=== PATIENT | male | born 1945 | race Caucasian/White ===

== ENCOUNTER 2017-06-13 15:01 | Emergency (ER) | payer OTHER ==
[~2017-06-13] VITALS: Ht 185.4 cm; Wt 105.3 kg
[2017-06-13] MEDS ORDERED: GLIPIZIDE 10 MG10 MG PO (15:08)
[2017-06-13] MEDS ORDERED: COREG25 MG PO (15:09)
[2017-06-13] MEDS ORDERED: TESSALON PERLE100 MG PO (15:58)
[2017-06-13] MEDS ORDERED: CHERATUSSIN AC118 ML PO (15:58)
[2017-06-13] MEDS ORDERED: IBUPROFEN 800800 M1 PO (15:58)
[2017-06-13 16:05] LABS: INFLUENZA B ANTIGEN None Detected (None Detect)
[2017-06-13] MEDS ORDERED: ZPAK PO (16:17)
[2017-06-13 16:19] VITALS: BP 139/66
--- NOTE | 2017-06-14 12:33 | EKG ---
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1945 Requested By: Estefanía Randhawa Order Number: [id number] Manan MD: Ayaz Laura Measurements Intervals [place] Rate: 72 P: 0 CA: 65 QRS: -35 QRSD: 124 T: -41 QT: 490 QTc: 537 Interpretive Statements Sinus rhythm Multiple premature complexes, vent & supraven Short CA interval IVCD, consider atypical RBBB Nonspecific T abnormalities, lateral leads Baseline wander in lead(s) V1 No previous ECG available for comparison Electronically Signed On 06-14-2017 12:33:11 SHIP JOINER by Ayaz Laura [email or web address] <ELECTRONICALLY SIGNED> By: Ayaz Laura MD, FAC 06/14/17 1233 [id number] Ayaz Laura MD, [facility] /EPI
== END 2017-06-13 16:20 | disposition home or self-care (01) ==
LOC: M.ERS 15:01
PROVIDERS: Physician Assistant
DX: J09.X2 Influenza due to identified novel influenza A virus with other respiratory manifestations (principal); J20.9 Acute bronchitis, unspecified; E11.9 Type 2 diabetes mellitus without complications; I10 Essential (primary) hypertension

== ENCOUNTER 2017-10-31 06:02 | Inpatient (IN) | payer OTHER ==
[2017-10-31] VITALS (7 sets, daily range): BP systolic 115–171; BP diastolic 71–102
[~2017-10-31] VITALS: Ht 188 cm; Wt 109.8 kg
[~2017-10-31 06:02] MED LIST: CHERATUSSIN AC118 ML PO; COREG25 MG PO; GLIPIZIDE 10 MG10 MG PO; IBUPROFEN 800800 M1 PO; TESSALON PERLE100 MG PO; ZPAK PO
[2017-10-31] MEDS ORDERED: PIOGLITAZONE15 MG PO (06:17)
[2017-10-31 06:36] LABS: ABSOLUTE BASOPHILS 0.1 thou/uL (0.0-0.2); ABSOLUTE EOSINOPHILS 0.2 thou/uL (0.0-0.7); ABSOLUTE LYMPHOCYTES 1.4 thou/uL (0.8-5.3); ABSOLUTE MONOCYTES 0.5 thou/uL (0.0-1.2); ABSOLUTE NEUTROPHILS 5.8 thou/uL (1.6-8.1); BASOPHILS 0.7 %; EOSINOPHILS 2.5 %; HEMATOCRIT 37.2 % (42.0-52.0); HEMOGLOBIN 12.2 gm/dL (14.0-18.0); LYMPHOCYTES 17.1 %; MCHC 32.9 g/dL (28.0-37.0); MCV 88.1 fL (80.0-100.0); MONOCYTES 6.5 %; MPV 9.2 fl. (7.2-11.1); NUCLEATED RBCS 0 /100WBC; PLATELET COUNT* 140 thou/uL (150-400); POLYS 73.2 %; RBC 4.22 mil/uL (4.50-6.00); RDW-CV 14.3 % (10.5-14.5)
[2017-10-31 06:40] LABS: CALCIUM 9.2 mg/dL (8.5-10.1); CREATININE 1.7 mg/dL (0.6-1.3); POTASSIUM 3.9 mmol/L (3.5-5.1)
[2017-10-31 06:49] LABS: URINE BILIRUBIN NEGATIVE (Negative); URINE BLOOD 2+ (Negative); URINE CLARITY CLEAR; URINE COLOR YELLOW; URINE GLUCOSE-RANDOM NEGATIVE (Negative); URINE KETONES NEGATIVE (Negative); URINE LEUKOCYTES-REFLEX NEGATIVE (Negative); URINE NITRITE-REFLEX NEGATIVE (Negative); URINE PROTEIN 2+ (Negative); URINE UROBILINOGEN 0.2 E.U./dl (0.2-1.0)
[2017-10-31 06:51] LABS: ALBUMIN 3.7 g/dL (3.4-5.0); TOTAL BILIRUBIN 0.9 mg/dL (<0.1-1.0); TOTAL PROTEIN 7.4 g/dL (6.4-8.2)
[2017-10-31 06:58] LABS: BACTERIA-REFLEX 1-9 Few /HPF (None Seen); CRYSTALS None Seen /LPF (None Seen); HYALINE CASTS 4-10 Moderate /LPF (None Seen); MUCUS 0-3 Light strn/LPF (None Seen); SQUAMOUS 0-3 Few /LPF (0-3); URINE RBC 3-10 Few /HPF (0-2); URINE WBC-REFLEX 0-5 Rare /HPF (0-5)
--- NOTE | 2017-10-31 11:55 | NUR ---
PATIENT CAME TO THE FLOOR FROM THE ER VIA CART, IN STABLE CONDITION. COMPLAINS OF PAIN THAT IS NOT WELL CONTROLLED YET. PAIN MEDICATION GIVEN AND FLUIDS STARTED. ADMISSION ASSESSMENT AND ROOM ORIENTATION DONE, WUESTIONS ANSWERED FOR PATIENT. CALL LIGHT IS IN REACH, WILL CONTINUE TO MONITOR.
[2017-10-31] MEDS ORDERED: TRESIBA FL200 UNIT/1 SUBQ (12:04)
[2017-10-31] MEDS ORDERED: ATORVASTATIN CA40 MG PO (12:04)
[2017-10-31] MEDS ORDERED: PROSCAR 5MG TABL5 MG PO (12:04)
[2017-10-31] MEDS ORDERED: FLOMAX0.4 MG PO (12:05)
--- NOTE | 2017-10-31 17:46 | NUR ---
PATIENT HAS BEEN ALERT SINCE ARRIVING TO THE FLOOR FROM THE ER. VITAL SIGNS HAVE BEEN STABLE ON ROOM AIR. PROVIDER ORDERED WHITE TO BE REMOVED WAITING ON PATIENT TO VOID WILL NEED TO STRAIN URINE. IV FLUID IS RUNNING IN RIGHT AC. CALL LIGHT IS IN REACH, WILL CONTINUE TO MONITOR.
[2017-11-01 00:01] VITALS: BP 124/77
[2017-11-01 04:39] LABS: HEMATOCRIT 33.4 % (42.0-52.0); HEMOGLOBIN 11.1 gm/dL (14.0-18.0); MCH 29.5 pg (26.0-34.0); MCHC 33.3 g/dL (28.0-37.0); MCV 88.8 fL (80.0-100.0); MPV 9.5 fl. (7.2-11.1); RBC 3.76 mil/uL (4.50-6.00); RDW-CV 14.5 % (10.5-14.5); WBC 4.9 thou/uL (4.0-11.0)
[2017-11-01 04:51] LABS: CALCIUM 8.5 mg/dL (8.5-10.1); CREATININE 2.1 mg/dL (0.6-1.3); POTASSIUM 4.4 mmol/L (3.5-5.1)
--- NOTE | 2017-11-01 07:13 | NUR ---
PATIENT HAS SLEPT WELL THROUGHOUT THE NIGHT WITHOUT ANY ISSUES. NO C/O PAIN DURING THE SHIFT. URINE STRAINED AND NO STONE RETRIEVAL NOTED. PATIENT HAS REMAINED NPO SINCE MIDNIGHT D/T POSSIBLE PROCEDURE TODAY. VSS ON RA. IV IN RIGHT AC-NS @ 100ML/HR. PATIENT INSTRUCTED TO USE CALL LIGHT WHEN NEEDING ASSISTANCE. HOURLY ROUNDS MADE. WILL CONTINUE WITH PLAN OF CARE AND NURSING TO MONITOR.
[2017-11-01 08:15] VITALS: BP 119/70
[2017-11-01 16:18] VITALS: BP 149/68
--- NOTE | 2017-11-01 18:04 | NUR ---
PATIENT HAS BEEN ALERT AND ORIENTED TODAY. VITAL SIGNS STABLE ON ROOM AIR, SOME COMPLAINTS OF PAIN THAT IS CONTROLLED WITH ORAL PAIN MEDICATIONS. NO STONES FOUND WHILE DRAINING URINE TODAY. UP AD JERRY IN ROOM. CALL LIGHT IS IN REACH, WILL CONTINUE TO MONITOR.
[2017-11-02 04:56] LABS: HEMATOCRIT 32.6 % (42.0-52.0); HEMOGLOBIN 10.8 gm/dL (14.0-18.0); MCH 29.5 pg (26.0-34.0); MCHC 33.3 g/dL (28.0-37.0); MCV 88.7 fL (80.0-100.0); MPV 9.5 fl. (7.2-11.1); RBC 3.67 mil/uL (4.50-6.00); RDW-CV 14.6 % (10.5-14.5); WBC 5.1 thou/uL (4.0-11.0)
[2017-11-02 04:59] LABS: CALCIUM 8.3 mg/dL (8.5-10.1); CREATININE 2.1 mg/dL (0.6-1.3); MAGNESIUM 1.9 mg/dL (1.8-2.4); POTASSIUM 4.3 mmol/L (3.5-5.1)
[2017-11-02] MEDS ORDERED: LEVSIN0.125 MG PO (08:24)
[2017-11-02] MEDS ORDERED: UROCIT-K10 ME1 PO (08:24)
--- NOTE | 2017-11-02 08:26 | NUR ---
PATIENT HAS SLEPT WELL THROUGHOUT THE NIGHT WITHOUT ANY ISSUES. NO C/O PAIN. VSS ON RA. URINE STRAINED BUT NOT STONE RETRIEVED. PATIENT HAS REMAINED NPO SINCE MIDNIGHT. IV IN RIGHT AC-NS @ 50ML/HR. PATIENT INSTRUCTED TO USE CALL LIGHT WHEN NEEDING ASSISTANCE. HOURLY ROUNDS MADE. WILL CONTINUE WITH PLAN OF CARE AND NURSING TO [facility].
[2017-11-02 08:30] VITALS: BP 152/86
--- NOTE | 2017-11-02 10:00 | NUR ---
ASSUMED CARES AT 0700. PT IN BED, BED IN LOW LOCKED POSITION. BED ALARM ON. PT A&O X4, OCC FORGETFUL UPON WAKING FROM SLEEP. HEART MURMUR AUSCULTATED, IRREGULAR RHYTHM, ASYMTOMATIC. OCC HYPERTENSIVE 152/86. PT STABLE ON RA, AFEBRILE, PERRLA, ANKLES AND FEET +1 EDEMA. PT UP AD JERRY. HOURLY ROUNDING AND ACCU CHECKS CONTINUE. RIGHT AC IV LEAKING, PT CLEARED FOR DISCHARGE CONSEQUENTLY IV WAS REMOVED. URINE STRAINING CONTINUES. PT ERIC PAIN THIS MORNING ROUNDS. CARB CONTROL BREAKFAST TOLERATED. PT PROGRESSING TOWARDS GOAL. WILL CONTINUE TO MONITOR PT STATUS AND PREPARE FOR DISCHARGE.
[2017-11-02] MEDS ORDERED: NORCO 5-325 TA1 EACH PO (10:41)
[2017-11-02 10:43] VITALS: BP 152/86
--- NOTE | 2017-11-02 11:15 | EKG ---
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[facility] : 1945 Requested By: Víctor Lawrence Order Number: [id number] Reading MD: Rakesh Sagastume Measurements Intervals [place] Rate: 93 P: [place]: QRS: -32 QRSD: 124 T: -18 QT: 411 QTc: 512 Interpretive Statements Atrial fibrillation Right bundle branch block Baseline wander in lead(s) I,III,aVR,aVL,V4 Compared to ECG 06/13/2017 15:07:03 Sinus rhythm no longer present Electronically Signed On 11-02-2017 11:15:21 CDT by Rakesh Sagastume [email or web address] <ELECTRONICALLY SIGNED> By: Rakesh Sagastume MD, FAC 11/02/17 1115 [id number] [id number] Rakesh Sagastume MD, [facility] /EPI
--- NOTE | 2017-11-02 11:26 | NUR ---
PT IV REMOVED. PT DRESSED AND PACKED ALL PERSONAL BELONGINGS. DISCHARGE AND MEDICATION/PRESCRIPTION CARE NOTES REVIEWED AND SIGNED. PRESCRIPTIONS GIVEN. HOURLY ROUNDING COMPLETED. ACCU CHECKS COMPLETED. PT ESCORTED VIA AMBULATION WITH NURSING STAFF AND FAMILY TO CAR TO GO HOME. DISCHARGE COMPLETE AT 1124.
[2017-11-02 11:28] VITALS: BP 152/86
== END 2017-11-02 11:24 | disposition home or self-care (01) | DRG 694 ==
LOC: M.ERS 06:02 → M.TBA-ER 09:03 → M.ORTHSURG 09:03
PROVIDERS: Emergency Medicine; Internal Medicine; ADMIT Internal Medicine
DX: N13.2 Hydronephrosis with renal and ureteral calculous obstruction (principal); N17.0 Acute kidney failure with tubular necrosis; I87.8 Other specified disorders of veins; N40.0 Benign prostatic hyperplasia without lower urinary tract symptoms; E11.51 Type 2 diabetes mellitus with diabetic peripheral angiopathy without gangrene; I25.10 Atherosclerotic heart disease of native coronary artery without angina pectoris; Z87.442 Personal history of urinary calculi; Z95.1 Presence of aortocoronary bypass graft; Z79.899 Other long term (current) drug therapy

== ENCOUNTER 2018-08-26 12:35 | Emergency (ER) | payer OTHER ==
[~2018-08-26] VITALS: Ht 182.9 cm; Wt 102.1 kg
[~2018-08-26 12:35] MED LIST changes: +ATORVASTATIN CA40 MG PO; +FLOMAX0.4 MG PO; +LEVSIN0.125 MG PO; +NORCO 5-325 TA1 EACH PO; +PIOGLITAZONE15 MG PO; +PROSCAR 5MG TABL5 MG PO; +TRESIBA FL200 UNIT/1 SUBQ; +UROCIT-K10 ME1 PO
[2018-08-26] MEDS ORDERED: TESSALON PERLE100 M1 PO (14:26)
[2018-08-26] MEDS ORDERED: ZPAK PO (14:26)
[2018-08-26 14:33] VITALS: BP 156/79
== END 2018-08-26 14:34 | disposition home or self-care (01) ==
LOC: M.ERS 12:35
DX: J18.9 Pneumonia, unspecified organism (principal); I10 Essential (primary) hypertension; E11.9 Type 2 diabetes mellitus without complications; N40.0 Benign prostatic hyperplasia without lower urinary tract symptoms